=== PATIENT | female | born 1995 | race African-American/Black ===

== ENCOUNTER 2021-01-22 23:14 | Emergency (ER) | payer OTHER ==
[2021-01-22 23:41] VITALS: BP 144/72; PULSE 78; TEMP 98.2; BMI 25.0
[2021-01-22] MEDS ORDERED: MAG HYDROX/AL HYDROX/SIMETH 30 ML UNIT-DOSE CUP PO ONE (23:56)
[2021-01-22] MEDS ORDERED: FAMOTIDINE 20 MG TABLET PO ONE (23:56)
[2021-01-22] MEDS ORDERED: ACETAMINOPHEN 325 MG TABLET (FP) PO ONE (23:56)
[2021-01-23] MEDS ORDERED: FAMOTIDINE 20 MG TABLET ONE (00:08)
[2021-01-23] MEDS ORDERED: ACETAMINOPHEN 325 MG TABLET (FP) ONE (00:08)
[2021-01-23] MEDS ORDERED: MAG HYDROX/AL HYDROX/SIMETH 30 ML UNIT-DOSE CUP ONE (00:09)
[2021-01-23] MEDS ORDERED: SODIUM CHLORIDE 1,000 ML IV STA (01:20)
[2021-01-23] MEDS ORDERED: METOCLOPRAMIDE HCL INJECTION 10 MG/2 ML VIAL IVPB ONE (01:20)
[2021-01-23] MEDS ORDERED: METOCLOPRAMIDE HCL INJECTION 10 MG/2 ML VIAL ONE (01:37)
[2021-01-23 02:51] LABS: BASO % 0.2 % (0-2.0); HEMATOCRIT 31.6 % (32.4-45.2); HEMOGLOBIN 10.8 GM/dL (10.7-15.3); LYMPH % 7.9 % (8-40); MCH 30.6 pg (25.7-33.7); MCHC 34.1 g/dl (32.0-36.0); MEAN CELL VOLUME 89.9 fl (80-96); MEAN PLT VOLUME 8.5 fl (7.5-11.1); MONO % 3.6 % (3.8-10.2); NEUT % 88.3 % (42.8-82.8); PLATELET COUNT 277 K/MM3 (134-434); RBC 3.51 M/mm3 (3.60-5.2); WHITE BLOOD COUNT 11.6 K/mm3 (4.0-10.0)
[2021-01-23 02:58] LABS: CHLORIDE 110 mmol/L (98-107); POTASSIUM 3.9 mmol/L (3.5-5.1); SODIUM 141 mmol/L (136-145)
[2021-01-23 03:00] LABS: ALBUMIN 3.5 g/dl (3.4-5.0); ANION GAP 7 MMOL/L (8-16); BLOOD UREA NITROGEN 8.1 mg/dL (7-18); CO2 25 mmol/L (21-32); GLUCOSE,RANDOM 106 mg/dL (74-106); LIPASE 72 U/L (73-393)
[2021-01-23 03:03] LABS: CREATININE 0.7 mg/dL (0.55-1.3); SGOT/AST 9 U/L (15-37); SGPT/ALT 18 U/L (13-61)
[2021-01-23 03:05] LABS: BILIRUBIN,TOTAL 0.4 mg/dL (0.2-1); TOT PROT 6.6 g/dl (6.4-8.2)
[2021-01-23 03:06] LABS: ALK PHOS 49 U/L (45-117)
== END 2021-01-23 05:06 | disposition home or self-care (01) ==
LOC: JER 23:14
PROC: 3E033GC Introduction of Other Therapeutic Substance into Peripheral Vein, Percutaneous Approach (ICD-10-PCS; principal; 2021-01-22)
PROC: 3E033GC Introduction of Other Therapeutic Substance into Peripheral Vein, Percutaneous Approach (ICD-10-PCS; 2021-01-22)
PROC: 3E0337Z Introduction of Electrolytic and Water Balance Substance into Peripheral Vein, Percutaneous Approach (ICD-10-PCS; 2021-01-22)
DX: K29.00 Acute gastritis without bleeding (principal)
CPT/HCPCS: 36415; 71046-TC-FY; 80053; 83690; 84484; 85025; 93005; 93010; 99285-25; C9803; U0003